=== PATIENT | male | born 1985 | race Caucasian/White ===

== ENCOUNTER 2019-03-02 20:15 | Inpatient (IN) | payer MEDICAID ==
[~2019-03-02] VITALS: Ht 157.5 cm; Wt 86.6 kg
[2019-03-02] MEDS: KCL 20MEQ/100ML PREMIX 100 ML IV ONE ×2 (00:15→22:45)
[2019-03-02] MEDS ORDERED: SODIUM CHLORIDE 0.9% 1,000 ML IV ONE (21:03)
[2019-03-02] MEDS ORDERED: KETOROLAC 30MG/ML VIAL IV STA (21:03)
[2019-03-02] MEDS ORDERED: ONDANSETRON HCL 4MG/2ML INJ IV STA (21:03)
[2019-03-02 21:31] LABS: BASOPHILS % 0.8 % (0.0-2.0); HEMOGLOBIN. 15.7 g/dL (14.0-18.0); LYMPHOCYTES % 12.4 % (20.0-50.0); MEAN CORPUSCULAR HEMOGLOBIN 33.5 pg (28.0-32.0); MEAN CORPUSCULAR VOLUME 96.2 fL (80.0-94.0); MEAN PLATELET VOLUME 7.7 fl (7.4-10.4); MONOCYTES % 10.1 % (2.0-8.0); NEUTROPHILS % 73.7 % (40.0-76.0); PLATELET 104 x1000/uL (130-400); RED BLOOD CELL COUNT 4.68 mill/uL (4.7-6.1); RED CELL DISTRIBUTION WIDTH 12.8 % (11.6-14.6)
[2019-03-02 21:35] LABS: CLARITY URINE CLEAR (CLEAR); COLOR URINE DARK YELLOW (YELLOW); KETONES URINE NEGATIVE (NEGATIVE); LEUKOCYTE ESTERASE URINE NEGATIVE (NEGATIVE); NITRITE URINE NEGATIVE (NEGATIVE); OCCULT BLOOD URINE NEGATIVE (NEGATIVE); PROTEIN URINE NEGATIVE (NEGATIVE); SPECIFIC GRAVITY URINE 1.012 (1.005-1.030)
[2019-03-02 21:37] LABS: CHLORIDE 101 mEq/L (98-107)
[2019-03-02 21:42] LABS: INR 1.1; PROTHROMBIN TIME 10.9 sec (9.6-11.0)
[2019-03-02] MEDS ORDERED: TRAMADOL 50MG TABLET PO PRN (22:45)
[2019-03-02] MEDS ORDERED: DOCUSATE SODIUM 100MG CAPSULE PO PRN (22:45)
[2019-03-02] MEDS ORDERED: GUAIFENESIN 200MG/10ML SUGAR FREE UDC PO PRN (22:45)
[2019-03-02] MEDS ORDERED: ONDANSETRON HCL 4MG/2ML INJ IV PRN (22:45)
[2019-03-02] MEDS ORDERED: CLONIDINE 0.1MG TABLET PO PRN (22:45)
[2019-03-02] MEDS ORDERED: KETOROLAC 15MG/ML VIAL IV PRN (22:45)
[2019-03-02] MEDS ORDERED: MAGNESIUM/ALUMINUM HYDROXIDE/SIMETHICONE 30ML UDC PO PRN (22:45)
[2019-03-02] MEDS ORDERED: LORAZEPAM 0.5MG TABLET PO PRN (22:45)
[2019-03-02] MEDS ORDERED: IPRATROPIUM/ALBUTEROL 0.5-3(2.5)MG/3ML NEB INH PRN (22:45)
[2019-03-02] MEDS: MORPHINE SULFATE 2 MG/ML CPJ (NOT FOR IM USE) IV PRN (23:51)
[2019-03-03] MEDS: KCL 20MEQ/100ML PREMIX 100 ML IV ONE (00:15)
[2019-03-03] MEDS: SODIUM CHLORIDE 0.9% 1,000 ML IV SCH ×4 (00:32→20:48)
[2019-03-03] MEDS: ACETAMINOPHEN 325MG TABLET PO PRN ×2 (02:48→20:49)
[2019-03-03 05:23] VITALS: BP 117/71
[2019-03-03 05:30] VITALS: BP 117/77
[2019-03-03] MEDS ORDERED: ZOLPIDEM TARTRATE 5MG TABLET PO PRN (05:55)
[2019-03-03] MEDS: MORPHINE SULFATE 2 MG/ML CPJ (NOT FOR IM USE) IV PRN (06:19)
[2019-03-03] MEDS ORDERED: ALBU90AE INH (06:27)
[2019-03-03 08:00] VITALS: BP 127/85
[2019-03-03] MEDS: PANTOPRAZOLE SODIUM 40 MG/VIAL IV SCH (08:45)
[2019-03-03 08:57] LABS: CREATINE KINASE 93 IU/L (39-308)
[2019-03-03 08:58] LABS: CREATINE KINASE MB FRACTION < 1.0 ng/mL (0.5-3.6)
[2019-03-03 12:00] VITALS: BP 110/81
[2019-03-03 12:35] LABS: *AMPHETAMINES SCREEN URINE NEGATIVE (NEGATIVE); *BARBITURATES SCREEN URINE NEGATIVE (NEGATIVE); *BENZODIAZEPINES SCREEN URINE NEGATIVE (NEGATIVE); *COCAINE SCREEN URINE NEGATIVE (NEGATIVE); METHADONE URINE SCREEN NEGATIVE (NEGATIVE); OPIATES URINE SCREEN PRESUMTIVE POSITIVE (NEGATIVE); PHENCYCLIDINE URINE SCREEN NEGATIVE (NEGATIVE)
[2019-03-03 12:36] LABS: CANNABINOID URINE SCREEN NEGATIVE (NEGATIVE)
[2019-03-03 16:00] VITALS: BP 120/81
[2019-03-03 17:05] LABS: BASOPHILS % 0.5 % (0.0-2.0); EOSINOPHILS % 3.1 % (0.0-5.0); HEMATOCRIT. 44.5 % (42.0-52.0); HEMOGLOBIN. 15.5 g/dL (14.0-18.0); LYMPHOCYTES % 9.6 % (20.0-50.0); MEAN CORPUSCULAR VOLUME 97.4 fL (80.0-94.0); MEAN PLATELET VOLUME 8.3 fl (7.4-10.4); MONOCYTES % 9.9 % (2.0-8.0); NEUTROPHILS % 76.9 % (40.0-76.0); PLATELET 114 x1000/uL (130-400); RED BLOOD CELL COUNT 4.57 mill/uL (4.7-6.1)
[2019-03-03 17:12] LABS: CHLORIDE 102 mEq/L (98-107)
[2019-03-03 17:17] LABS: AMYLASE 141 IU/L (25-115)
[2019-03-03 17:27] LABS: CREATINE KINASE 72 IU/L (39-308)
[2019-03-03 17:28] LABS: CREATINE KINASE MB FRACTION < 1.0 ng/mL (0.5-3.6)
[2019-03-03] MEDS ORDERED: POTASSIUM CHLORIDE 20MEQ TABLET SR PO NR (18:00)
[2019-03-03 20:00] VITALS: BP_SYST 100; BP_SYST 130; BP_DIAS 56; BP_DIAS 76
[2019-03-04] VITALS: BP 120/78
[2019-03-04 04:00] VITALS: BP 117/82
[2019-03-04] MEDS: SODIUM CHLORIDE 0.9% 1,000 ML IV SCH (04:14)
[2019-03-04 06:37] LABS: CHLORIDE 103 mEq/L (98-107)
[2019-03-04 06:44] LABS: AMYLASE 73 IU/L (25-115)
[2019-03-04 08:00] VITALS: BP 118/76
[2019-03-04] MEDS: PANTOPRAZOLE SODIUM 40 MG/VIAL IV SCH (09:24)
[2019-03-04 12:00] VITALS: BP 114/80
[2019-03-04] MEDS ORDERED: FOLIC ACID 1 MG, THIAMINE HCL 100 MG, MVI, ADULT NO.1 10 ML in DEXTROSE 5% WATER 1,000 ML IV NR ×4 (12:00)
[2019-03-04 16:00] VITALS: BP 114/80
[2019-03-04 17:05] VITALS: BP 114/80
[2019-03-05] MEDS ORDERED: PANTOPRAZOLE 40MG DR TABLET PO SCH (06:45)
== END 2019-03-04 18:35 | disposition home or self-care (01) ==
LOC: ER 20:56 → 5WST 23:19 → ENRESERV 03-03 04:34
PROVIDERS: ADMIT Internal Medicine; ATTEND Internal Medicine
DX: K80.20 Calculus of gallbladder without cholecystitis without obstruction (principal); K85.20 Alcohol induced acute pancreatitis without necrosis or infection; D69.6 Thrombocytopenia, unspecified; I47.1 Supraventricular tachycardia; E87.6 Hypokalemia; G47.33 Obstructive sleep apnea (adult) (pediatric); J45.909 Unspecified asthma, uncomplicated; E66.9 Obesity, unspecified; Y90.2 Blood alcohol level of 40-59 mg/100 ml; F10.220 Alcohol dependence with intoxication, uncomplicated; R74.0 Nonspecific elevation of levels of transaminase and lactic acid dehydrogenase [LDH]; Z79.899 Other long term (current) drug therapy; Z71.41 Alcohol abuse counseling and surveillance of alcoholic; Z71.3 Dietary counseling and surveillance; Z68.34 Body mass index [BMI] 34.0-34.9, adult
CPT/HCPCS: 36415; 71045; 76705; 78227; 80048; 80061; 80076; 80305; 80320; 81003; 82150; 82248; 82550; 82553; 83036; 83735; 84484; 93005; 96374; 99285; A9537; C9113; J1885; J2270; J2405; J3411; J3480; J3490; J7030; J7070; G0480

== ENCOUNTER 2020-12-18 19:18 | Emergency (ER) | payer MEDICAID ==
[~2020-12-18] VITALS: Ht 167.6 cm; Wt 90.0 kg
[~2020-12-18 19:18] MED LIST: ALBU90AE INH
[2020-12-18] MEDS ORDERED: SODIUM CHLORIDE 0.9% 1,000 ML IV ONE (20:00)
[2020-12-18 20:01] VITALS: BP 119/78
[2020-12-18 20:29] LABS: BASOPHILS % 1.5 % (0.0-2.0); HEMATOCRIT. 33.7 % (42.0-52.0); HEMOGLOBIN. 11.7 g/dL (14.0-18.0); MEAN CORPUSCULAR HEMOGLOBIN 33.1 pg (28.0-32.0); MEAN CORPUSCULAR VOLUME 95.3 fL (80.0-94.0); MEAN PLATELET VOLUME 6.3 fl (7.4-10.4); MONOCYTES % 7.4 % (2.0-8.0); NEUTROPHILS % 67.1 % (40.0-76.0); PLATELET 332 x1000/uL (130-400); RED BLOOD CELL COUNT 3.54 mill/uL (4.7-6.1); RED CELL DISTRIBUTION WIDTH 13.4 % (11.6-14.6)
[2020-12-18 20:34] LABS: CHLORIDE 104 mEq/L (98-107)
== END 2020-12-18 22:25 | disposition home or self-care (01) ==
LOC: ER 19:18
DX: R55 Syncope and collapse (principal); R42 Dizziness and giddiness; R53.1 Weakness; D64.9 Anemia, unspecified; M25.461 Effusion, right knee; E86.0 Dehydration; J45.909 Unspecified asthma, uncomplicated; Z79.899 Other long term (current) drug therapy
CPT/HCPCS: 36415; 80053; 85025; 86850; 86900; 86901; 93005; 96360; 99284; J7030; Z7610